=== PATIENT | male | born 1945 | race African-American/Black ===

== ENCOUNTER 2020-07-20 15:34 | Inpatient (IN) | payer OTHER ==
[~2020-07-20] VITALS: Ht 175.3 cm; Wt 85.9 kg
[2020-07-20 16:33] LABS: INR 1.1; PROTHROMBIN TIME 11.4 sec (9.6-11.0)
[2020-07-20 16:38] LABS: BASOPHILS % 0.5 % (0.0-2.0); CHLORIDE 106 mEq/L (98-107); EOSINOPHILS % 1.5 % (0.0-5.0); HEMATOCRIT. 42.3 % (42.0-52.0); HEMOGLOBIN. 14.1 g/dL (14.0-18.0); MEAN CORPUSCULAR VOLUME 84.2 fL (80.0-94.0); MEAN PLATELET VOLUME 8.8 fl (7.4-10.4); MONOCYTES % 7.2 % (2.0-8.0); NEUTROPHILS % 48.8 % (40.0-76.0); PLATELET 177 x1000/uL (130-400); RED BLOOD CELL COUNT 5.02 mill/uL (4.7-6.1); RED CELL DISTRIBUTION WIDTH 14.4 % (11.6-14.6)
[2020-07-20] MEDS ORDERED: CEFTRIAXONE 1 G PREMIX 50 ML IV ONE (17:15)
[2020-07-20] MEDS ORDERED: AZITHROMYCIN 500 MG in DEXT 5% WATER 250 ML IV ONE (17:15)
[2020-07-20] MEDS ORDERED: POTASSIUM CHLORIDE 20MEQ TABLET SR PO ONE (17:15)
[2020-07-20 17:45] LABS: CLARITY URINE CLEAR (CLEAR); COLOR URINE YELLOW (YELLOW); KETONES URINE NEGATIVE (NEGATIVE); LEUKOCYTE ESTERASE URINE NEGATIVE (NEGATIVE); NITRITE URINE POSITIVE (NEGATIVE); OCCULT BLOOD URINE NEGATIVE (NEGATIVE); PH URINE 7.5 (4.5-8.0); PROTEIN URINE NEGATIVE (NEGATIVE); SPECIFIC GRAVITY URINE 1.035 (1.005-1.030); UROBILINOGEN URINE 0.2 E.U./dL (0.2-1.0)
[2020-07-20] MEDS ORDERED: MAGNESIUM 1 G PREMIX 100 ML IV ONE (18:15)
[2020-07-20] MEDS ORDERED: ASPIRIN 325MG EC TABLET PO ONE (18:15)
[2020-07-20] MEDS ORDERED: KETOROLAC 15MG/ML VIAL IV PRN (20:30)
[2020-07-20] MEDS ORDERED: DOCUSATE SODIUM 100MG CAPSULE PO PRN (20:30)
[2020-07-20] MEDS ORDERED: IPRATROPIUM/ALBUTEROL 0.5-3(2.5)MG/3ML NEB NEB PRN (20:30)
[2020-07-20] MEDS ORDERED: NA PHOS,M-B/NA PHOS,DI-BA ENEMA 118ML PR PRN (20:30)
[2020-07-20] MEDS ORDERED: ZOLPIDEM TARTRATE 5MG TABLET PO PRN (20:30)
[2020-07-20] MEDS ORDERED: NITROGLYCERIN 0.4MG TABLET SL SL PRN (20:30)
[2020-07-20] MEDS ORDERED: GUAIFENESIN 200MG/10ML SUGAR FREE UDC PO PRN (20:30)
[2020-07-20] MEDS ORDERED: POTASSIUM CHLORIDE 20MEQ TABLET SR PO NR (20:30)
[2020-07-20] MEDS ORDERED: MAGNESIUM/ALUMINUM HYDROXIDE/SIMETHICONE 30ML UDC PO PRN (20:30)
[2020-07-20] MEDS ORDERED: ACETAMINOPHEN 325MG TABLET PO PRN ×2 (20:30)
[2020-07-20] MEDS ORDERED: CLONIDINE 0.1MG TABLET PO PRN (20:30)
[2020-07-20] MEDS ORDERED: ONDANSETRON HCL 4MG/2ML INJ IV PRN (20:30)
[2020-07-20 20:52] LABS: TOTAL IRON BINDING CAPACITY 304 ug/dL (250-450)
[2020-07-20] MEDS ORDERED: LEVOFLOXACIN 500MG PREMIX 100 ML IV SCH (21:00)
[2020-07-20] MEDS: LISINOPRIL 20MG TABLET PO SCH ×2 (21:00→21:37)
[2020-07-20 21:08] LABS: FOLIC ACID (FOLATE) SERUM 19.1 ng/mL (>5.38)
[2020-07-20] MEDS: ASCORBIC ACID 500 MG TABLET PO SCH (21:35)
[2020-07-20] MEDS: FAMOTIDINE 20MG TABLET PO SCH (21:35)
[2020-07-20] MEDS: ENOXAPARIN 40MG/0.4ML SYR SUBCUT SCH (21:42)
[2020-07-21 01:55] VITALS: BP 154/62
[2020-07-21 02:07] LABS: CREATINE KINASE 452 IU/L (39-308)
[2020-07-21 02:08] LABS: CREATINE KINASE MB FRACTION 3.8 ng/mL (0.5-3.6)
[2020-07-21 04:00] VITALS: BP 147/60
[2020-07-21 07:24] LABS: CHLORIDE 109 mEq/L (98-107)
[2020-07-21 07:29] LABS: BASOPHILS % 0.4 % (0.0-2.0); EOSINOPHILS % 0.9 % (0.0-5.0); HEMATOCRIT. 39.6 % (42.0-52.0); HEMOGLOBIN. 13.1 g/dL (14.0-18.0); LYMPHOCYTES % 25.9 % (20.0-50.0); MEAN CORPUSCULAR VOLUME 84.6 fL (80.0-94.0); MEAN PLATELET VOLUME 8.7 fl (7.4-10.4); MONOCYTES % 8.1 % (2.0-8.0); NEUTROPHILS % 64.7 % (40.0-76.0); PLATELET 164 x1000/uL (130-400); RED BLOOD CELL COUNT 4.68 mill/uL (4.7-6.1); RED CELL DISTRIBUTION WIDTH 14.2 % (11.6-14.6)
[2020-07-21 07:33] LABS: CREATINE KINASE 441 IU/L (39-308)
[2020-07-21 07:37] LABS: CREATINE KINASE MB FRACTION 3.5 ng/mL (0.5-3.6)
[2020-07-21 08:00] VITALS: BP 140/56
[2020-07-21] MEDS: LISINOPRIL 20MG TABLET PO SCH ×2 (08:29→20:42)
[2020-07-21] MEDS: ASPIRIN 325MG TABLET PO SCH (08:29)
[2020-07-21] MEDS: ZINC SULFATE 220 MG ( 50 ) CAPSULE PO SCH (08:29)
[2020-07-21] MEDS: CHOLECALCIFEROL (D3) 1000 UNIT TABLET PO SCH (08:29)
[2020-07-21] MEDS: ASCORBIC ACID 500 MG TABLET PO SCH ×2 (08:30→20:42)
[2020-07-21] MEDS: FAMOTIDINE 20MG TABLET PO SCH ×2 (08:30→20:42)
[2020-07-21] MEDS ORDERED: ASPIRIN 325MG EC TABLET PO SCH (09:00)
[2020-07-21] MEDS ORDERED: PNEUMOCOCCAL 23-VAL P-SAC VAC 0.5 ML IM ONE (12:00)
[2020-07-21] MEDS ORDERED: ALBU18HF2 IH (13:31)
[2020-07-21] MEDS ORDERED: LOSA25TA26 MT (13:31)
[2020-07-21] MEDS ORDERED: ATOR-2 MT (13:31)
[2020-07-21] MEDS ORDERED: AMLO10TA80 MT (13:31)
[2020-07-21] MEDS ORDERED: ASPI-1497 MT (13:31)
[2020-07-21 16:00] VITALS: BP 137/67
[2020-07-21] MEDS ORDERED: *PATIENT'S OWN MEDICATION STORAGE XX SCH ×2 (17:00)
[2020-07-21] MEDS: CEFTRIAXONE 1,000 MG in DEXTROSE 5% WATER 50 ML IV SCH (17:41)
[2020-07-21] MEDS ORDERED: CEFTRIAXONE 1 G PREMIX 50 ML IV SCH (18:00)
[2020-07-21 20:40] VITALS: BP 135/56
[2020-07-21] MEDS: LEVOFLOXACIN 500MG PREMIX 100 ML IV SCH (21:29)
[2020-07-21] MEDS: ENOXAPARIN 40MG/0.4ML SYR SUBCUT SCH (21:29)
[2020-07-22] VITALS: BP 150/65
[2020-07-22 04:00] VITALS: BP 139/70
[2020-07-22 08:00] VITALS: BP 175/74
[2020-07-22] MEDS: ASPIRIN 325MG TABLET PO SCH (09:00)
[2020-07-22] MEDS: FAMOTIDINE 20MG TABLET PO SCH ×2 (09:01→21:22)
[2020-07-22] MEDS: CHOLECALCIFEROL (D3) 1000 UNIT TABLET PO SCH (09:02)
[2020-07-22] MEDS: ASCORBIC ACID 500 MG TABLET PO SCH ×2 (09:02→21:22)
[2020-07-22] MEDS: ZINC SULFATE 220 MG ( 50 ) CAPSULE PO SCH (09:02)
[2020-07-22] MEDS: LISINOPRIL 20MG TABLET PO SCH ×2 (09:45→21:22)
[2020-07-22 12:00] VITALS: BP 153/74
[2020-07-22 16:00] VITALS: BP 164/67
[2020-07-22] MEDS: CEFTRIAXONE 1,000 MG in DEXTROSE 5% WATER 50 ML IV SCH (17:18)
[2020-07-22 20:00] VITALS: BP 126/66
[2020-07-22] MEDS: LEVOFLOXACIN 500MG PREMIX 100 ML IV SCH (21:22)
[2020-07-22] MEDS: ENOXAPARIN 40MG/0.4ML SYR SUBCUT SCH (21:23)
[2020-07-23] VITALS: BP 143/62
[2020-07-23 04:00] VITALS: BP 130/55
[2020-07-23 08:00] VITALS: BP 148/85
[2020-07-23] MEDS: ASCORBIC ACID 500 MG TABLET PO SCH (09:45)
[2020-07-23] MEDS: ASPIRIN 325MG TABLET PO SCH (09:45)
[2020-07-23] MEDS: ZINC SULFATE 220 MG ( 50 ) CAPSULE PO SCH (09:45)
[2020-07-23] MEDS: CHOLECALCIFEROL (D3) 1000 UNIT TABLET PO SCH (09:45)
[2020-07-23] MEDS: LISINOPRIL 20MG TABLET PO SCH (09:46)
[2020-07-23] MEDS: FAMOTIDINE 20MG TABLET PO SCH (10:00)
[2020-07-23 12:03] VITALS: BP 149/65
== END 2020-07-23 13:15 | disposition home or self-care (01) | DRG 871 ==
LOC: ER 15:34 → 7WST 18:11 → ENRESERV 21:37 → 8WST 07-21 09:40
PROVIDERS: ADMIT Internal Medicine; ATTEND Internal Medicine
DX: A41.9 Sepsis, unspecified organism (principal); J18.9 Pneumonia, unspecified organism; J44.0 Chronic obstructive pulmonary disease with (acute) lower respiratory infection; N39.0 Urinary tract infection, site not specified; E83.42 Hypomagnesemia; E87.6 Hypokalemia; I10 Essential (primary) hypertension; Z20.822 Contact with and (suspected) exposure to COVID-19; M19.90 Unspecified osteoarthritis, unspecified site; H81.10 Benign paroxysmal vertigo, unspecified ear; R65.20 Severe sepsis without septic shock; Z79.899 Other long term (current) drug therapy; I25.2 Old myocardial infarction
CPT/HCPCS: 36415; 70496; 70498; 71045; 80053; 81003; 82550; 82553; 82607; 82746; 82962; 83036; 83540; 83550; 83605; 83735; 83880; 84100; 84145; 84484; 85025; 85379; 90732; 93005; 93970; 97162; 97166; 99291; J0456; J0696; J1650; J1956; J3475; J7040; J7060; U0003